=== PATIENT | female | born 1990 | race Hispanic/Latino ===

== ENCOUNTER 2023-03-30 22:50 | Inpatient (IN) | payer MEDICAID, OTHER ==
[2023-03-30 23:06] VITALS: BMI 28.3
[2023-03-30] MEDS ORDERED: Acetaminophen 500 MG TAB PO PRN (23:26)
[2023-03-30] MEDS ORDERED: Bicitra 30 ML UDCUP PO PRN (23:26)
[2023-03-30] MEDS ORDERED: Misoprostol 200 MCG TAB PR PRN (23:26)
[2023-03-30] MEDS ORDERED: fentaNYL 50 mcg/mL 1 mL Vial SLOW IVP PRN (23:26)
[2023-03-30] MEDS ORDERED: Diphenoxylate HCl/Atropine Tablet PO PRN ×2 (23:26)
[2023-03-30] MEDS ORDERED: Methylergonovine 0.2 MG/ML VIAL IM PRN (23:26)
[2023-03-30] MEDS ORDERED: hydrALAZINE 20 MG/ML VIAL SLOW IVP PRN (23:26)
[2023-03-30] MEDS ORDERED: Carboprost 250 MCG/ML AMP IM PRN (23:26)
[2023-03-30] MEDS ORDERED: Promethazine HCl 25 MG/ML VIAL IM PRN (23:26)
[2023-03-30] MEDS ORDERED: Famotidine/PF 20 mg/2ml Vial SLOW IVP PRN (23:26)
[2023-03-30] MEDS ORDERED: Ondansetron PF 4 MG/2 ML Vial IVP PRN (23:26)
[2023-03-30] MEDS ORDERED: CEFAZOLIN 2 GM in Sodium Chloride 0.9% 100 ML IVPB SCH (23:30)
[2023-03-30] MEDS ORDERED: Oxytocin 30 units/NS 500 ML 500 ML IV SCH (23:30)
[2023-03-30] MEDS ORDERED: Lactated Ringer's 1,000 ML IV SCH (23:30)
[2023-03-30 23:50] LABS: Hematocrit 31.6 % (34.9-44.5); Hemoglobin 10.7 g/dL (12.0-15.5); Mean Corpuscular HGB CONC 33.9 g/dL (32.0-36.0); Mean Corpuscular Hemoglobin 26.5 pg (27.0-33.0); Mean Corpuscular Volume 78.2 fl (81.6-98.3); Mean Platelet Volume 9.7 fl (7.4-10.4); Platelet Count 368 10x3/uL (150-450); RBC Distribution Width 14.1 % (11.5-14.5); Red Blood Cell (RBC) Count 4.04 10x6/uL (3.90-5.03); White Blood Cell (WBC) Count 9.6 10x3/uL (3.5-10.5)
[2023-03-31] MEDS ORDERED: Azithromycin 500 MG VIAL ONE (00:11)
[2023-03-31 00:19] LABS: Syphilis Antibody Nonreactive (Nonreactive); Syphilis Antibody Index 0.03 S/CO (<1.00 Non-Reactive)
[2023-03-31 00:20] LABS: HBSAg Index 0.22 S/CO (0-0.99); Hep B Surf Ag - L&D Non-Reactive S/CO (NonReactive)
[2023-03-31] MEDS ORDERED: Dexmedetomidine 200 MCG/2 ML VIAL ONE (00:51)
[2023-03-31] MEDS ORDERED: Morphine PF 10 MG/10 ML VIAL ONE (00:51)
[2023-03-31] MEDS ORDERED: Oxytocin 10 UNITS/ML VIAL ONE (00:53)
[2023-03-31] MEDS ORDERED: ePHEDrine Sulfate 50 MG/10 ML VIAL ONE (01:04)
[2023-03-31] MEDS ORDERED: Ondansetron PF 4 MG/2 ML Vial ONE (01:22)
[2023-03-31] MEDS ORDERED: PHENYLEPHRINE-NS 100 MCG/ML 10 ML SYRINGE ONE (01:46)
[2023-03-31] MEDS ORDERED: Ondansetron PF 4 MG/2 ML Vial IVP PRN ×3 (02:23→11:33)
[2023-03-31] MEDS ORDERED: Meperidine HCl/PF 25 MG (1 mL) VIAL SLOW IVP PRN (02:23)
[2023-03-31] MEDS ORDERED: diphenhydrAMINE 50 MG/ML VIAL IVP PRN (02:23)
[2023-03-31] MEDS ORDERED: Ketorolac Tromethamine 30 MG (1 mL) VIAL IVP PRN (02:23)
[2023-03-31] MEDS ORDERED: Naloxone HCl 0.4 mg/ml Vial IV PRN (02:23)
[2023-03-31] MEDS ORDERED: Promethazine HCl 25 MG/ML VIAL IM PRN ×2 (02:23→11:33)
[2023-03-31] MEDS ORDERED: Naloxone HCl 0.4 mg/ml Vial IVP PRN ×2 (02:23)
[2023-03-31] MEDS ORDERED: Moisturizing Cream (Eucerin) 113 GM JAR TOP PRN (02:23)
[2023-03-31] MEDS ORDERED: fentaNYL 50 mcg/mL 1 mL Vial SLOW IVP PRN ×2 (02:23→14:30)
[2023-03-31] MEDS ORDERED: Promethazine HCl 25 MG SUPP PR PRN (02:23)
[2023-03-31] MEDS ORDERED: Communication Order-Pharmacy FS SCH (02:30)
[2023-03-31] MEDS ORDERED: Ketorolac Tromethamine 30 MG (1 mL) VIAL IVP SCH (02:30)
[2023-03-31] MEDS ORDERED: Misoprostol 200 MCG TAB ONE (05:47)
[2023-03-31] MEDS ORDERED: Methylergonovine 0.2 MG/ML VIAL ONE (05:48)
[2023-03-31] MEDS ORDERED: Misoprostol 200 MCG TAB PO SCH ×2 (08:30→13:00)
[2023-03-31] MEDS ORDERED: diphenhydrAMINE 25 MG CAP PO PRN (11:33)
[2023-03-31] MEDS ORDERED: Bisacodyl 10 MG SUPP PR PRN (11:33)
[2023-03-31] MEDS ORDERED: Boostrix 0.5 ML (Tdap) VIAL (>/=7 yrs of age) IM ONE (11:33)
[2023-03-31] MEDS ORDERED: Lanolin Ointment 7 GM TUBE TOP PRN (11:33)
[2023-03-31] MEDS ORDERED: hydrALAZINE 20 MG/ML VIAL SLOW IVP PRN (11:33)
[2023-03-31 12:24] LABS: Hematocrit 38.1 % (34.9-44.5); Hemoglobin 12.8 g/dL (12.0-15.5); Mean Corpuscular HGB CONC 33.6 g/dL (32.0-36.0); Mean Corpuscular Hemoglobin 27.2 pg (27.0-33.0); Mean Corpuscular Volume 81.1 fl (81.6-98.3); Mean Platelet Volume 9.6 fl (7.4-10.4); Platelet Count 321 10x3/uL (150-450); RBC Distribution Width 14.6 % (11.5-14.5); White Blood Cell (WBC) Count 17.4 10x3/uL (3.5-10.5)
[2023-03-31 12:57] LABS: D-Dimer Test 5.71 mg/L FEU (0.19-0.50); PTT 28.8 sec (22.0-33.0); Prothrombin Time 10.3 sec (9.5-12.1)
[2023-03-31] MEDS: Ketorolac Tromethamine 30 MG (1 mL) VIAL IVP SCH ×3 (12:59→23:19)
[2023-03-31] MEDS ORDERED: Prenatal Vitamin 1 TAB PO SCH (13:00)
[2023-03-31] MEDS ORDERED: Ferrous Sulfate 325 MG TAB PO SCH (13:00)
[2023-03-31] MEDS ORDERED: Docusate 100 MG CAP PO SCH (13:00)
[2023-03-31] MEDS ORDERED: Meperidine HCl/PF 25 MG (1 mL) VIAL IM PRN (14:30)
[2023-03-31] MEDS: Ferrous Sulfate 325 MG TAB PO SCH (19:22)
[2023-03-31] MEDS: Docusate 100 MG CAP PO SCH (21:05)
[2023-04-01 03:49] LABS: Hematocrit 31.7 % (34.9-44.5); Hemoglobin 10.5 g/dL (12.0-15.5); Mean Corpuscular HGB CONC 33.1 g/dL (32.0-36.0); Mean Corpuscular Hemoglobin 26.8 pg (27.0-33.0); Mean Corpuscular Volume 80.9 fl (81.6-98.3); Mean Platelet Volume 9.6 fl (7.4-10.4); Platelet Count 298 10x3/uL (150-450); RBC Distribution Width 14.7 % (11.5-14.5); Red Blood Cell (RBC) Count 3.92 10x6/uL (3.90-5.03); White Blood Cell (WBC) Count 13.3 10x3/uL (3.5-10.5)
[2023-04-01] MEDS: Ibuprofen 800 MG TAB PO SCH ×3 (05:32→22:03)
[2023-04-01] MEDS: Prenatal Vitamin 1 TAB PO SCH (08:25)
[2023-04-01] MEDS: Docusate 100 MG CAP PO SCH ×2 (08:29→22:03)
[2023-04-01] MEDS: Ferrous Sulfate 325 MG TAB PO SCH ×2 (08:29→21:57)
[2023-04-01] MEDS: HYDROcodone/Acetaminophen 5/325 mg Tablet PO PRN ×3 (08:47→22:02)
[2023-04-01] MEDS: Simethicone Chewable 80 MG TAB PO PRN ×3 (08:47→22:02)
[2023-04-02] MEDS: Ibuprofen 800 MG TAB PO SCH ×3 (06:14→22:00)
[2023-04-02] MEDS: HYDROcodone/Acetaminophen 5/325 mg Tablet PO PRN ×3 (06:15→22:01)
[2023-04-02] MEDS: Ferrous Sulfate 325 MG TAB PO SCH ×2 (07:50→19:15)
[2023-04-02] MEDS: Prenatal Vitamin 1 TAB PO SCH (08:02)
[2023-04-02] MEDS: Docusate 100 MG CAP PO SCH ×2 (08:02→22:00)
[2023-04-02] MEDS: Simethicone Chewable 80 MG TAB PO PRN (16:25)
[2023-04-03] MEDS: Ibuprofen 800 MG TAB PO SCH ×2 (06:16→13:34)
[2023-04-03] MEDS: Prenatal Vitamin 1 TAB PO SCH (08:46)
[2023-04-03] MEDS: Docusate 100 MG CAP PO SCH (08:46)
[2023-04-03 10:14] VITALS: BP 103/67; TEMP 98.4
[2023-04-03] MEDS: Ferrous Sulfate 325 MG TAB PO SCH (10:17)
[2023-04-03] MEDS: HYDROcodone/Acetaminophen 5/325 mg Tablet PO PRN (14:57)
== END 2023-04-03 15:05 | disposition home or self-care (01) | DRG 788 ==
LOC: CSHLD/OP 22:50 → CSHLD 23:35 → CSHPP 03-31 05:30 → CSHLD 03-31 06:15 → CSHPP 03-31 11:15
PROVIDERS: ADMIT Family Medicine; ATTEND Family Medicine
PROC: 10D00Z1 Extraction of Products of Conception, Low, Open Approach (ICD-10-PCS; principal; 2023-03-31)
PROC: 30233N1 Transfusion of Nonautologous Red Blood Cells into Peripheral Vein, Percutaneous Approach (ICD-10-PCS; 2023-03-31)
PROC: 3E033XZ Introduction of Vasopressor into Peripheral Vein, Percutaneous Approach (ICD-10-PCS; 2023-03-31)
DX: O44.53 Low lying placenta with hemorrhage, third trimester (principal); Z3A.34 34 weeks gestation of pregnancy; Z37.0 Single live birth; O34.211 Maternal care for low transverse scar from previous cesarean delivery
CPT/HCPCS: 36415; 36430; 51702; 85027; 85049; 85300; 85362; 85379; 85384; 85610; 85730; 86780; 86850; 86900; 86901; 87340; 90715; 99285; J1885; J2210; J2274; J2405; J2590; P9016